=== PATIENT | female | born 1970 | race Hispanic/Latino ===

== ENCOUNTER 2020-02-28 19:49 | Observation (INO) | payer OTHER ==
[~2020-02-28] VITALS: Ht 152.4 cm; Wt 78.0 kg
[2020-02-28] MEDS ORDERED: FAMOTIDINE 20 MG/2 ML VIAL IV STA (20:52)
[2020-02-28] MEDS ORDERED: ONDANSETRON HCL INJ 2MG/ML 2ML 2 MG/ML VIAL IV STA (20:52)
[2020-02-28] MEDS ORDERED: ASPIRIN 325 MG TAB PO ONE (21:00)
--- OUTSIDE RECORDS SUMMARY | 2020-02-28 21:01 | XMS REPORT | Continuity of Care Document ---
Author Author [facility] Organization [facility] Address [address] [place] [address] [address] [place] [address] Phone Unavailable Care Team Providers Care Mail Sorter And Delivery Name Role Phone Asked, Pcp No PCP Unavailable Rios GROSS, Suzy Attphys Unavailable Som MENDOZA, Chon Serrano Attphys Edwardo MENDOZA, Radha Attphys Ander MENDOZA, Jelena Attphys RADHA PARKER Admphys Unavailable Payers Payer Name Policy Type Policy Number Effective Date Expiration Date S ource AETNAAETNA HMO,POS,EPO, MC/ECxxxxxxxxx2013-PresentHMO xxxxxxxxx 2013 00:00:00 Krishna Leigh Problems Condition Name Condition Details Condition Category Status Onset Date Resolution Date Last Treatment Date Treating Clinician Comments Source Hypokalemia Hypokalemia Disease Active 2020-01-03 00:00:00 Krishna Leigh Acute angina Acute angina Disease Active 2020-01-02 00:00:00 Krishna Leigh Allergies, Adverse Reactions, Alerts This patient has no known allergies or adverse reactions. Social History Social Habit Start Date Stop Date Quantity Comments Source Sex Assigned At [facility] Alcohol intake 2020-01-02 00:00:00 2020-01-02 00:00:00 Current drinker of alcohol (finding) Krishna Leigh Smoking Status Start Date Stop Date Source Never smoker Krishna solomon Medications Ordered Medication Name Filled Medication Name Start Date Stop Da te Current Medication? Ordering Clinician Indication Dosage Frequency Signature (SIG) Comments Components Source escitalopram (LEXAPRO) 10 MG tablet 2020-01-04 11:46:02 Yes 10mg QD Take 10 mg by mouth daily. Krishna Leigh levothyroxine (SYNTHROID) 100 mcg tablet 2020-01-04 11:46:02 Yes 100ug QD Take 100 mcg by mouth daily. Ramos Leigh atenoloL (TENORMIN) 50 MG tablet 2020-01-04 11:46:02 Yes 50mg QD Take 50 mg by mouth daily. Krishna Leigh atorvastatin (LIPITOR) 10 mg tablet 2020-01-01 00:00:00 Yes 10mg QD Take 10 mg by mouth daily. Krishna Leigh hydroCHLOROthiazide (MICROZIDE) 12.5 mg capsule 2020-01-01 00:00 :00 Yes 12.5mg QD Take 12.5 mg by mouth daily. Krishna Leigh Vital Signs Vital Name Observation Time Observation Value Comments Source Systolic blood pressure 2020-01-04 07:43:06 121 mm[Hg] Krishna Leigh Diastolic blood pressure 2020-01-04 07:43:06 71 mm[Hg] Krishna Leigh Heart rate 2020-01-04 07:43:06 67 /min Krishna Leigh Body temperature 2020-01-04 07:43:06 36.44 Denise [place] [facility] Respiratory rate 2020-01-04 07:43:06 18 /min [place] [facility] Oxygen saturation in Arterial blood by Pulse oximetry 01-03 07:43:06 95 /min Krishna Leigh Body weight 2020-01-04 06:13:00 77.656 kg Krishna Leigh BMI 2020-01-04 06:13:00 33.44 kg/m2 Krishna Leigh Body height 2020-01-02 20:02:00 152.4 cm Krishna Leigh Procedures Procedure Date / Time Performed Performing Clinician [facility] e BASIC METABOLIC PANEL 2020-01-04 05:20:00 Mihir Erazo MAGNESIUM LEVEL 2020-01-04 05:20:00 Mihir Erazo ESTIMATED GFR 2020-01-04 05:20:00 Mihir Erazo CV CARDIAC PET STRESS TEST 2020-01-03 15:34:16 Jelena Worthington CARDIAC PET MYOCARDIAL PERFUSION IMAGING 2020-01-03 15:34:16 Jelena Dietrich TROPONIN 2020-01-03 13:30:00 LeoJelena montalvo Krishna Meth odist TROPONIN 2020-01-03 02:17:00 SarbjitAndrzej shen[place]enssela[place] Alexipriscilla roque [place] [facility] BASIC METABOLIC PANEL 2020-01-03 02:17:00 Ciara Sampson ESTIMATED GFR 2020-01-03 02:17:00 Ciara Sampson on [facility] COVID-19 QUALITATIVE PCR 2020-01-03 00:39:00 Ciara Sampson TROPONIN 2020-01-02 23:05:00 Shelly Gómezmiesha [place] [facility] ED REFERRAL TO [facility] 2019 23:01:07 Ciara Sampson ECG ED PRELIMINARY INTERPRETATION 2020-01-02 22:39:07 Ab Adrián ioleufemia Leigh CT ANGIOGRAM PE CHEST 2020-01-02 22:29:40 Ciara Sampson XR CHEST 2 VW 2020-01-02 21:44:26 Ciara Sampson on [facility] URINE CULTURE 2020-01-02 21:00:00 Zahc Kearns URINALYSIS SCREEN AND MICROSCOPY, WITH REFLEX TO CULTURE 21:00:00 Zach Kearns HC COMPLETE BLD COUNT W/AUTO DIFF 2020-01-02 20:55:00 Kim Brown COMPREHENSIVE METABOLIC PANEL 2020-01-02 20:55:00 Alexa Brown TROPONIN 2020-01-02 20:55:00 Shelly Gómez [place] [facility] B NATRIURETIC PEPTIDE 2020-01-02 20:55:00 Ulysses Brown [facility] ESTIMATED GFR 2020-01-02 20:55:00 Ulysses Brown Met hodist ECG 12-LEAD 2020-01-02 20:04:43 Ulysses Brown Met hodist Plan of Care Planned Activity Planned Date Details Comments Source Future Scheduled Test 2020-03-19 00:00:00 INFLUENZA VACCINE [code = INFLUENZA VACCINE] Krishna Leigh Future Scheduled Test 2019 00:00:00 BREAST CANCER SCRE ENING [code = BREAST CANCER SCREENING] Krishna Leigh Future Scheduled Test 2019 00:00:00 COLONOSCOPY SCREEN ING [code = COLONOSCOPY SCREENING] Krishna Leigh Future Scheduled Test 2019 00:00:00 SHINGLES VACCINES (#1) [code = SHINGLES VACCINES (#1)] Krishna Leigh Future Scheduled Test 1990 00:00:00 Screening for steve gnant neoplasm of cervix (procedure) [code = 136354705] Krishna Giles t Encounters Start Date/Time End Date/Time Encounter Type Admission Type [facility] Care Department Encounter ID Source 2020-01-02 00:00:00 2020-01-04 00:00:00 Outpatient [facility] [id number] Krishna Leigh Results Test Description Test Time Test Comments Results Result Comments Source SCR MAMM BILATERAL BIJU CAD DIGITAL 2020-01-23 10:40:26 - SCR MAMM BILATERAL BIJU CAD DIGITALBILATERAL DIGITAL SCREENING MAMMOGRAM 3D/2D WITH CAD: 01/21/2020CLINICAL: Asymptomatic. Digital breast tomosynthesis was performed in addition to routine CC and MLO views. Current mammographic images were evaluated by either a Andigilog M-Vu or a Cojoin ImageChecker CAD (computer aided detection system). Comparison is made to exams dated 09/28/2016 mammogram and 09/29/2014 mammogram - [facility]-. The tissue of both breasts has scattered fibroglandular background echotexture. Questionable asymmetry versus superimposition of breast tissue, only seen in the right breast mediolateral oblique view, retroareolar plane, approximately 11 cm from the nipple. Stable bilateral oval, circumscribed masses, benign. No suspicious mass, architectural distortion, malignant type calcification, or lymph node abnormality detected in the left breast. IMPRESSION: INCOMPLETE: ADDITIONAL IMAGING EVALUATION NEEDEDQuestionable asymmetry versus superimposition of breast tissue, only seen in the right breast mediolateral oblique view, retroareolar plane, approximately 11 cm from the nipple. Spot compression tomosynthesis and possible ultrasound are recommended at this time.Nigel Munoz M.D. ss/:01/23/2020 10:40:26 Surveyor Chain Helper: Ana Guerrero , [facility]-FWletter sent: Additional Imaging Mammogram BI-RADS: 0 Incomplete: Additional Imaging Evaluation Needed Basic metabolic panel 2020-01-04 07:23:21 Test Item Sodium (test code = 2951-2) 139 135- 148 mEq/L Potassium (test code = 2823-3) 4.1 3.5- 5.0 mEq/L Chloride (test code = 2075-0) 102 98- 112 mEq/L CO2 (test code = 2028-9) 22 24- 31 mEq/L L Anion gap (test code = 92873-9) 15@ANIO 7- 15 mEq/L BUN (test code = 3094-0) 17 mg/dL 6-20 Creatinine (test code = 2160-0) 0.72 mg/dL 0.5-0.9 Glucose (test code = 2345-7) 108 mg/dL 65-99 H Calcium (test code = 55385-1) 9.7 mg/dL 8.3-10.2 Lab Interpretation (test code = 99958-4) Abnormal [facility] [id number] 07:23:21* Test Item Value Reference Range Interpretation Comments Magnesium (test code = 03559-2) 2.0 mg/dL 1.6-2.6 Krishna MethodistEstimated [id number] 07:23:21* Test Item Value Reference Range Interpretation Comments Estimated GFR (test code = 5488) >=90 mL/min/1.73 m2 Catergory Units InterpretationG1 >=90 Normal or highG2 60-89 Mildly psznotcexY4w 45-59 Mildly to moderately kzsiuedgvU6r 30-44 Moderately to severely decreasedG4 15-29 Severely decreasedG5 <15 Kidney failureThe eGFR was calculated using the Chronic Kidney Disease Epidemiology Collaboration (CKD-EPI) equation. Interpretation is based on recommendations of the National Kidney Foundation-Kidney Disease Outcomes Quality Initiative (NKF-KDOQI) published in 2014. [facility] CatholicCOVID-19 qualitative [id number] 17:11:11* Test Item Value Reference Range Interpretation Comments Interpretation (test code = 9692545) Negative results do not preclude 2019-nCoV infection and should not be used as the sole basis for treatment or other patient management decisions. Negative results must be combined with clinical observations, patient history, and epidemiological information. COVID-19 qualitative PCR result (test code = 01877-6) Not-Detect ed Not-Detected COVID-19 qualitative PCR (test code = 7070) See link below for P DF Lab Report Krishna Centeno Cardiac PET Myocardial Perfusion [id number] 16:45:33 Interface, Radiology Results In - 01/03/2020 4:45 PM CDTSee PDF file for full r esultHouzena LeighCv stress [id number] 16:36:50* Test Item Value Reference Range Interpretation Comments Resting HR (test code = 4107968969) 60 Resting BP (test code = 0710961332) 129 Peak MET Achieved (test code = 8173828996) 1 Protocol Name (test code = 6903042935) Lexiscan Time in Exercise Phase (test code = 9640006132) 00:01:00 Max Systolic BP (test code = 5548919593) 132 Max Diastolic BP (test code = 1880502087) 63 Max Heart Rate (test code = 3157539936) 89 Max Predicted Heart Rate (test code = 8511438718) 170 Target HR Formula (test code = 7610524854) (220 - Age)*100% Test Indication (test code = 7385853877) chest pain Arrhy During Ex (test code = 6556023367) ECG Interp Before EX (test code = 6314061525) ECG Interp During Ex (test code = 1784617296) Ex Summary Comment (test code = 6231387419) Overall HR Response to Exercise (test code = 0314698503) Overall BP Response To Exercise (test code = 2653669386) Reason for Termination (test code = 6291818660) Protocol Complete Stress Test Impression (test code = 1428330097) -Wavef orm interpreted in report associated with image study. No interpretation is provided as part of this Stress ECG report.- Krishna LeighJhyjkyxoyMudaxxlx7983-51-03 14:08:35* Test Item Value Reference Range Interpretation Comments Troponin (test code = 30236-1) 0.020 ng/mL 0-0.04 In patients suspected of having a myocardial infarction, along with all other appropriate clinical measures and actions including ECG and other diagnostics as appropriate, measure Ultra TnI at 0 hrs and at 3 hrs.Myocardial infarction VERY LIKELYThe 0 hr TnI level is > 0.10 ng/mL Pasquale cardial infarction LIKELYThe 0 hr TnI level is > 0.04 ng/mL and 3 hr level is increased or decreased by at least 0.020 ng/mL Myocardi al infarction VERY UNLIKELYBoth the 0 hr and 3 hr TnI levels <= 0.04 ng/mL(within normal limits) OR 0 hr is > 0.04 ng/mL and 3 hr is increased OR decreased by less than 0.020 ng/mL [facility] MethodistECG 12 [id number] 10:04:17* Test Item Value Reference Range Interpretation Comments Ventricular rate (test code = 253) 83 Atrial rate (test code = 255) 83 MN interval (test code = 266) 180 QRSD interval (test code = 260) 92 QT interval (test code = 264) 408 QTC interval (test code = 265) 479 P axis 1 (test code = 267) 55 QRS axis 1 (test code = 268) -8 T wave axis (test code = 270) 33 EKG impression (test code = 273) Normal sinus rhythm-N ormal ECG-No previous ECGs available- [facility] Angiogram Pe [id number] 22:44:56Hm Interface, Radiology Results - 01/02/2020 10:48 PM CDTEXAMINATION: CT ANGIOGRAM PE CHESTCLINICAL HISTORY: 48 years Female Cp SOBTECHNIQUE: Multiple CT angiographic images of the chest were obtained during intravenous administration of contrast. Multiple computerized reformatted images as well as 3-D volume rendered images were also obtained. CT imaging was performed with iterative r econstruction techniques and/or automated exposure control to reduce radiation d ose. COMPARISON: None.FINDINGS:Lungs and airways: No acute airspace disease or suspicious pulmonary nodules. Pleura: No pleural effusion or pneumothorax.Medias tinum and lymph nodes: No lymphadenopathy. Cardiovascular: The heart size is nor mal. No pericardial effusion.The caliber of the ascending, transverse, and desce nding thoracic aorta is normal. The thoracic aorta is patent. There is no eviden ce of dissection flap in the thoracic aorta.The pulmonary artery trunk, right ma in pulmonary artery, and left main pulmonary artery are within normal limits of size. No saddle embolus is identified. There is no evidence of right heart strai n. No filling defect is identified within the central segmental opacified pulmon dominic arteries. Evaluation of the more distal pulmonary artery branches is limited due to contrast mixing artifact. Upper abdomen: No suspicious abnormalities.Bon es: No suspicious osseous lesions. Other: None.IMPRESSION:1. No evidence of pul monary embolism.2. No acute abnormality identified in the chest.[facility]-[id number] [place] Preliminary Interpretation - Not an [id number] 22:39:07Zach Kearns MD 01/08/2020 2:52 [facility] Preliminary Interpretation - Not an OrderPerformed by: Ciara Sampson, PAAuthorized by: Zach Kearns MD ECG reviewed by ED Physician in the absence of a tea bag packer: yes Previous ECG: Previous ECG: UnavailableInterpretation: Interpretation: normal Rate: ECG rate: 83 bpm ECG rate assessment: normal Rhythm: Rhythm: sinus rhythm Ectopy: Ectopy: none QRS: QRS axis: Left QRS intervals: NormalConduction: Conduction: normal ST segments: ST segments: Non-specificT waves: T waves: normal [place] MethodistUrinalysis screen and microscopy, with reflex to [id number] 22:29:50* Test Item Value Reference Range Interpretation Comments Specimen site (test code = 8977809) Clean catch Color, UA (test code = 5778-6) Colorless Appearance, UA (test code = 5767-9) Clear Specific gravity, UA (test code = 5811-5) 1.003 1.001-1.035 pH, UA (test code = 5803-2) 7.0 5.0-8.5 Protein, UA (test code = 21574-5) Negative Negative Glucose, UA (test code = 87120-4) Negative Negative Ketones, UA (test code = 2514-8) Negative Negative Bilirubin, UA (test code = 5770-3) Negative Negative Blood, UA (test code = 5794-3) Negative Negative Nitrite, UA (test code = 5802-4) Negative Negative Urobilinogen, UA (test code = 24688-3) <2.0 <2.0 Leukocyte esterase, UA (test code = 5799-2) Negative Negative WBC, UA (test code = 5821-4) <1 0- 4 /HPF RBC, UA (test code = 15198-0) <1 0- 5 /HPF Bacteria, UA (test code = 17588-6) Few None seen Yeast, UA (test code = 20304-7) None seen Yeast with pseudohyphae, UA (test code = 21741-8) None seen [facility] natriuretic [id number] 22:09:03* Test Item Value Reference Range Interpretation Comments BNP (test code = 73491-7) 7 pg/mL 0-100 [place] MethodistXR Chest 2 [id number] 21:49:39Hm Interface, Radiology Results - 01/02/2020 9:52 PM CDTEXAMINATION: XR CHEST 2 VWCLINICAL HISTORY: 48 years Female SOBCOMPARISON: None.IMPRESSION:Normal chest.Findings:The cardiomediastinal silhouette, lungs, and regional skeletal structures are within normal limits.[facility]-BN93ISIGHqpqgpw MethodistUrine [id number] 21:41:45* Test Item Value Reference Range Interpretation Comments Urine culture (test code = 5944209) SEE COMMENT Bacteriuria screen negative. [place] [facility] centerComprehensive metabolic [id number] 21:38:03* Test Item Value Reference Range Interpretation Comments Sodium (test code = 2951-2) 140 135- 148 mEq/L Potassium (test code = 2823-3) 3.3 3.5- 5.0 mEq/L L Chloride (test code = 5-0) 100 98- 112 mEq/L CO2 (test code = 2027-9) 26 24- 31 mEq/L Anion gap (test code = 32310-9) 14@ANIO 7- 15 mEq/L BUN (test code = 3094-0) 12 mg/dL 6-20 Creatinine (test code = 2160-0) 0.73 mg/dL 0.5-0.9 Glucose (test code = 2345-7) 108 mg/dL 65-99 H Calcium (test code = 55805-3) 9.3 mg/dL 8.3-10.2 Protein (test code = 2885-2) 7.4 g/dL 6.3-8.3 - 4.6- 7.0 g/dL1 week 4.4-7.6 g/dL7 months-1year 5.1-7.3 g/dL1-2 years 5.6-7.5 g/dL>3 years 6.0-8.0 g/bW22-641 6.3-8.3 g/dL Albumin (test code = 1751-7) 4.0 g/dL 3.5-5 A/G ratio (test code = 1759-0) 1.2 0.7-3.8 Alkaline phosphatase (test code = 6768-6) 120 U/L 35-104 H AST (test code = 1920-8) 36 U/L 10-35 H ALT (test code = 1742-6) 53 U/L 5-50 H Total bilirubin (test code = 1974-2) <0.2 0-1.2 Lab Interpretation (test code = 50211-1) Abnormal [facility] with platelet and [id number] 21:14:08* Test Item Value Reference Range Interpretation Comments WBC (test code = 22311-0) 7.71 4.50- 11.00 k/uL RBC (test code = 18686-0) 4.40 m/uL 4.2-5.5 HGB (test code = 718-7) 12.5 g/dL 12-16 HCT (test code = 4544-3) 36.4 % 37-47 L MCV (test code = 787-2) 82.7 fL 82-100 MCH (test code = 785-6) 28.4 pg 27-34 MCHC (test code = 786-4) 34.3 g/dL 31-37 RDW - SD (test code = 91827-5) 40.3 fL 37-55 MPV (test code = 85449-2) 9.9 fL 8.8-13.2 Platelet count (test code = 62982-2) 262 150- 400 k/uL Nucleated RBC (test code = 69801-9) 0.00 /100 WBC Neutrophils (test code = 34419-4) 50.8 % 39-69 Lymphocytes (test code = 59099-4) 38.0 % 25-45 Monocytes (test code = 23198-8) 8.7 % 0-10 Eosinophils (test code = 95597-6) 1.3 % 0-5 Basophils (test code = 57872-4) 0.4 % 0-1 Immature granulocytes (test code = 07591-7) 0.8 % 0-1 "Immature granulocytes" (promyelocytes, myelocytes, metamyelocytes) Lab Interpretation (test code = 70949-6) Abnormal Krishna Leigh
--- OUTSIDE RECORDS SUMMARY | 2020-02-28 21:01 | XMS REPORT | Clinical Summary ---
Author Author [facility] Organization [facility] Address Unknown Phone Unavailable Care Team Providers Care Work Study Student Name Role Phone Asked, No Pcp PCP Unavailable Allergies No Known Allergies Medications End Date Status Medication Sig Dispensed Refills Start Date Active escitalopram (LEXAPRO) 10 Take 10 mg by 0 MG tablet mouth daily. Active levothyroxine (SYNTHROID) Take 100 mcg 0 100 mcg tablet by mouth daily. Active atenoloL (TENORMIN) 50 MG Take 50 mg by 0 tablet mouth daily. Active atorvastatin (LIPITOR) 10 Take 10 mg by 0 12/17 mg tablet mouth daily. 0 Active hydroCHLOROthiazide Take 12.5 mg 0 (MICROZIDE) 12.5 mg by mouth 0 capsule daily. Active Problems Problem Noted Date Hypokalemia 01/03/2020 Acute angina 01/02/2020 Encounters Care Team Description Date Type Specialty Suzy Nation RN 01/06/2020 Patient Quality Outreach Jelena Worthington MD 01/03/2020 Hospital Procedural Cardiolo gy Encounter Zach Kearns MD Cherian, Cecil, MD Acute angina (HCC) (Primary Dx); SOB (shortness of breath); Elevated troponin 01/02/2020 Emergency General Internal Me dicine - 01/04/2020 01/02/2020 Travel after 02/27/2019 Social History Date Tobacco Use Types Packs/Day Years Used Never Smoker Smokeless Tobacco: Never Used Drinks/Week oz/Week Comments Alcohol Use Yes Sex Assigned at Date Recorded Not on file Industry Job Start Date Occupation Not on file Not on file Not on file Travel End Travel History Travel Start No recent travel history available. Last Filed Vital Signs Reading Time Taken Comments Vital Sign 121/71 01/04/2020 7:43 AM CDT Blood Pressure 67 01/04/2020 7:43 AM CDT Pulse 36.4 C (97.6 F) 01/04/2020 7:43 AM CDT Temperature 18 01/04/2020 7:43 AM CDT Respiratory Rate 95% 01/04/2020 7:43 AM CDT Oxygen Saturation - - Inhaled Oxygen Concentration 77.7 kg (171 lb 3.2 oz) 01/04/2020 6:13 AM CDT Weight 152.4 cm (5') 01/02/2020 8:02 PM CDT Height 33.44 01/02/2020 8:02 PM CDT Body Mass Index Plan of Treatment Health Maintenance Due Date Last Done Comments CERVICAL CANCER SCREENING 1990 BREAST CANCER SCREENING 2019 COLONOSCOPY SCREENING 2019 SHINGLES VACCINES (#1) 2019 INFLUENZA VACCINE 03/19/2020 Procedures Comments Procedure Name Priority Date/Time Associated Diag nosis ESTIMATED GFR Routine 01/04/2020 5:20 AM CDT MAGNESIUM LEVEL Routine 01/04/2020 5:20 AM CDT BASIC METABOLIC PANEL Routine 01/04/2020 5:20 AM CDT CARDIAC PET MYOCARDIAL Routine 01/03/2020 PERFUSION IMAGING 3:34 PM CDT CV CARDIAC PET STRESS Routine 01/03/2020 TEST 3:34 PM CDT TROPONIN Routine 01/03/2020 1:30 PM CDT ESTIMATED GFR Timed 01/03/2020 2:17 AM CDT BASIC METABOLIC PANEL Timed 01/03/2020 2:17 AM CDT TROPONIN Timed 01/03/2020 2:17 AM CDT COVID-19 QUALITATIVE PCR STAT 01/03/2020 12:39 AM CDT TROPONIN Timed 01/02/2020 11:05 PM CDT ED REFERRAL TO [place] Routine 01/02/2020 [facility] PHYSICIAN 11:01 PM CDT ORGANIZATION ECG ED PRELIMINARY Routine 01/02/2020 INTERPRETATION 10:[address] ANGIOGRAM PE CHEST STAT 01/02/2020 10:29 PM CDT XR CHEST 2 VW STAT 01/02/2020 9:44 PM CDT URINALYSIS SCREEN AND Routine 01/02/2020 MICROSCOPY, WITH REFLEX 9:00 PM CDT TO CULTURE URINE CULTURE Routine 01/02/2020 9:00 PM CDT ESTIMATED GFR STAT 01/02/2020 8:55 PM CDT B NATRIURETIC PEPTIDE STAT 01/02/2020 8:55 PM CDT TROPONIN STAT 01/02/2020 8:55 PM CDT COMPREHENSIVE METABOLIC STAT 01/02/2020 PANEL 8:55 PM CDT HC COMPLETE BLD COUNT STAT 01/02/2020 W/AUTO DIFF 8:55 PM CDT ECG 12-LEAD STAT 01/02/2020 8:04 PM CDT after 02/27/2019 Results * Estimated GFR (01/04/2020 5:20 AM CDT) Only the most recent of 3 results within the time period is included. Pathologist [facility] Estimated GFR >=90 mL/min/1.73 m2 [place] Comment: [facility] Interpretation G1 >=90 Normal or high G2 60-89 Mildly decreased G3a 45-59 Mildly to moderately decreased G3b 30-44 Moderately to severely decreased G4 15-29 Severely decreased G5 <15 Kidney failure The eGFR was calculated using the Chronic Kidney Disease Epidemiology Collaboration (CKD-EPI) equation. Interpretation is based on recommendations of the National Kidney Foundation-Kidney Disease Outcomes Quality Initiative (NKF-KDOQI) published in 2014. Specimen Performing Organization Address City/State/Zipcode Ph one Number [facility] DEPARTMENT OF [address] [place] [address] PATHOLOGY AND GENOMIC MEDICINE [place] [facility] [address] [place], [place] [id number] HOSPITAL * Magnesium level (01/04/2020 5:20 AM CDT) Pathologist [facility] Magnesium 2.0 1.6 - 2.6 mg/dL [facility] Specimen Blood Performing Organization Address City/[facility] one Number [facility] DEPARTMENT OF [address] [place] [address] PATHOLOGY AND GENOMIC MEDICINE [address] * Basic metabolic panel (01/04/2020 5:20 AM CDT) Only the most recent of 2 results within the time period is included. [facility] Sodium 139 135 - 148 mEq/L [facility] Potassium 4.1 3.5 - 5.0 mEq/L [facility] Chloride 102 98 - 112 mEq/L [facility] CO2 22 (L) 24 - 31 mEq/L [facility] Anion gap 15@ANIO 7 - 15 mEq/L [facility] BUN 17 6 - 20 mg/dL [facility] Creatinine 0.72 0.50 - 0.90 mg/dL [facility] Glucose 108 (H) 65 - 99 mg/dL [facility] Calcium 9.7 8.3 - 10.2 mg/dL [facility] Specimen Blood Performing Organization Address [facility] one Number [facility] DEPARTMENT OF [address] [place] [address] PATHOLOGY AND GENOMIC MEDICINE [address] * CV Cardiac PET Myocardial Perfusion Imaging (01/03/2020 3:34 PM CDT) Specimen Narrative Performed At [facility] See PDF file for full result Procedure Note Interface, Radiology Results In - 01/03/2020 4:45 PM CDT See PDF file for full result Performing Organization Address [facility] one Number [facility] [address] [place] [address] * Cv stress test (01/03/2020 3:34 PM CDT) [facility] Resting HR 60 [facility] Resting BP 129 [facility] Peak MET 1.0 [facility] Achieved Protocol Name Krystian [facility] MUSE Time in 00:01:00 [facility] MUSE Exercise Phase Max Systolic BP 132 [facility] Max Diastolic 63 [facility] BP Max Heart Rate 89 [facility] Max Predicted 170 [facility] Heart Rate Target HR (220 - Age)*100% [facility] Formula Test Indication chest pain [facility] Arrhy During Ex [facility] ECG Interp [facility] Before EX ECG Interp [facility] During Ex Ex Summary [facility] Comment Overall HR [facility] Response to Exercise Overall BP [facility] Response To Exercise Reason for Protocol Complete [facility] Termination Stress Test -Waveform interpreted in [facility] Impression report associated with imag e study. No interpretation is provided as part of this Stress ECG report.- Specimen Narrative Performed At This result has an attachment that is n ot available. Performing Organization Address City/State/Zipcode Ph one Number [facility] MUSE [address] [place] [address] * Troponin (01/03/2020 1:30 PM CDT) Only the most recent of 4 results within the time period is included. Troponin 0.020 0.000 - 0.040 ng/mL [place] Comment: [facility] In patients suspected of HOSPITAL having a myocardial infarction, along with all other appropriate clinical measures and actions including ECG and other diagnostics as appropriate, measure Ultra TnI at 0 hrs and at 3 hrs. Myocardial infarction VERY LIKELY The 0 hr TnI level is > 0.10 ng/mL Myocardial infarction LIKELY The 0 hr TnI level is > 0.04 ng/mL and 3 hr level is increased or decreased by at least 0.020 ng/mL Myocardial infarction VERY UNLIKELY Both the 0 hr and 3 hr TnI levels <= 0.04 ng/mL(within normal limits) OR 0 hr is > 0.04 ng/mL and 3 hr is increased OR decreased by less than 0.020 ng/mL Specimen Blood Performing Organization Address City/[facility] Ph one Number [facility] DEPARTMENT OF [address] [place] [address] PATHOLOGY AND GENOMIC MEDICINE [address] * COVID-19 qualitative PCR (01/03/2020 12:39 AM CDT) Interpretation Negative results do not KELLER preclude 2019-nCoV infection [facility] and should not be used as the HOSPITAL sole basis for treatment or other patient management decisions. Negative results must be combined with clinical observations, patient history, and epidemiological information. COVID-19 Not-Detected Not-Detected [place] qualitative PCR [facility] result HOSPITAL COVID-19 See link below for PDF Lab [place] qualitative PCR ReportComment: Case Number: [facility] [id number] HOSPITAL Specimen Nasopharyngeal swab Performing Organization Address [facility] Ph one Number [facility] DEPARTMENT OF [address] [place] [address] PATHOLOGY AND GENOMIC MEDICINE [address] * ECG ED Preliminary Interpretation - Not an Order (01/02/2020 10:39 PM CDT) Narrative Performed At Zach Kearns MD 0 2:52 PM ECG ED Preliminary Interpretation - Not an Order Performed by: Ciara Sampson P A Authorized by: Zach Kearns MD ECG reviewed by ED Physician in the abs ence of a community relations police lieutenant: yes Previous ECG: Previous ECG: Unavailable Interpretation: Interpretation: normal Rate: ECG rate: 83 bpm ECG rate assessment: normal Rhythm: Rhythm: sinus rhythm Ectopy: Ectopy: none QRS: QRS axis: Left QRS intervals: Normal Conduction: Conduction: normal ST segments: ST segments: Non-specific T waves: T waves: normal * CT Angiogram Pe Chest (01/02/2020 10:29 PM CDT) Specimen Narrative Performed At EXAMINATION: CT ANGIOGRAM PE CHEST [facility] CLINICAL HISTORY: 48 years Female Cp SOB TECHNIQUE: Multiple CT angiographic ninoska ges of the chest were obtained during intravenous administration of contrast. Multiple computerized reformatted images as well as 3-D volume rendered images w ere also obtained. CT imaging was performed with iterative reconstruction techniques and /or automated exposure control to reduce radiation dose. COMPARISON: None. FINDINGS: Lungs and airways: No acute airspace di sease or suspicious pulmonary nodules. Pleura: No pleural effusion or pneumoth orax. Mediastinum and lymph nodes: No lymphad enopathy. Cardiovascular: The heart size is timoteo l. No pericardial effusion. The caliber of the ascending, transvers e, and descending thoracic aorta is normal. The thoracic aorta is patent. T here is no evidence of dissection flap in the thoracic aorta. The pulmonary artery trunk, right main pulmonary artery, and left main pulmonary artery are within normal limits of size . No saddle embolus is identified. There is no evidence of right heart strain. N o filling defect is identified within the central segmental opacified pulmonary arteries. Evaluation of the more distal pulmonary artery branches is limited due to contr ast mixing artifact. Upper abdomen: No suspicious abnormalities. Bones: No suspicious osseous lesions. Other: None. IMPRESSION: 1. No evidence of pulmonary embolism. 2. No acute abnormality identified in the chest. [facility]-[id number] Procedure Note Hm Interface, Radiology Results 01/02/2020 10:48 PM CDT EXAMINATION: CT ANGIOGRAM PE CHEST CLINICAL HISTORY: 48 years Female Cp SOB TECHNIQUE: Multiple CT angiographic images of the chest were obtained during intravenous administration of contrast. Multiple computerized reformatted images as well as 3-D volume rendered images were also obtained. CT imaging was performed with iterative reconstruction techniques and/or automated exposure control to reduce radiation dose. COMPARISON: None. FINDINGS: Lungs and airways: No acute airspace disease or suspicious pulmonary nodules. Pleura: No pleural effusion or pneumothorax. Mediastinum and lymph nodes: No lymphadenopathy. Cardiovascular: The heart size is normal. No pericardial effusion. The caliber of the ascending, transverse, and descending thoracic aorta is normal. The thoracic aorta is patent. There is no evidence of dissection flap in the thoracic aorta. The pulmonary artery trunk, right main pulmonary artery, and left main pulmonary artery are within normal limits of size. No saddle embolus is identified. There is no evidence of right heart strain. No filling defect is identified within the central segmental opacified pulmonary arteries. Evaluation of the more distal pulmonary artery branches is limited due to contrast mixing artifact. Upper abdomen: No suspicious abnormalities. Bones: No suspicious osseous lesions. Other: None. IMPRESSION: 1. No evidence of pulmonary embolism. 2. No acute abnormality identified in t he chest. [facility]-[id number] Performing Organization Address City/[facility] Ph one Number [facility] [address] [place] [address] * XR Chest 2 Vw (01/02/2020 9:44 PM CDT) Specimen Narrative Performed At EXAMINATION: XR CHEST 2 VW [facility] CLINICAL HISTORY: 48 years Female SOB COMPARISON: None. IMPRESSION: Normal chest. Findings: The cardiomediastinal silhouette, lungs , and regional skeletal structures are within normal limits. [facility]-[id number] Procedure Note Interface, Radiology Results Incoming - 01/02/2020 9:52 PM CDT EXAMINATION: XR CHEST 2 VW CLINICAL HISTORY: 48 years Female SOB COMPARISON: None. IMPRESSION: Normal chest. Findings: The cardiomediastinal silhouette, lungs, and regional skeletal structures are within normal limits. [facility]-[id number] Performing Organization Address [facility] Ph one Number [facility] [address] [place] [address] * Urinalysis screen and microscopy, with reflex to culture (01/02/2020 9:00 PM CDT) Specimen site Clean catch [facility] Color, UA Colorless [facility] Appearance, UA Clear [facility] Specific 1.003 1.001 - 1.[address] [place] [address] [facility] pH, UA 7.0 5.0 - 8.[address] [facility] Protein, UA Negative Negative [facility] Glucose, UA Negative Negative [facility] Ketones, UA Negative Negative [facility] Bilirubin, UA Negative Negative [facility] Blood, UA Negative Negative [facility] Nitrite, UA Negative Negative [facility] Urobilinogen, <2.0 <2.0 [facility] Leukocyte Negative Negative [place] [facility] WBC, UA <1 0 - 4 /HPF [facility] RBC, UA <1 0 - 5 /HPF [facility] Bacteria, UA Few None seen [facility] Yeast, UA None seen [facility] Yeast with None seen [place] [facility] Specimen Urine Performing Organization Address [facility] Ph one Number [facility] DEPARTMENT OF [address] [place] [address] PATHOLOGY AND GENOMIC MEDICINE [id number] [place] [address] * Urine culture (01/02/2020 9:00 PM CDT) Pathologist [facility] Urine culture SEE COMMENTComment: [place] Bacteriuria screen negative. [facility] Specimen Performing Organization Address City/State/[facility] Ph one Number [facility] DEPARTMENT OF [address] [place] [address] PATHOLOGY AND GENOMIC MEDICINE [address] * CBC with platelet and differential (01/02/2020 8:55 PM CDT) [facility] WBC 7.71 4.50 - 11.00 k/uL [facility] RBC 4.40 4.20 - 5.50 m/uL [facility] HGB 12.5 12.0 - 16.0 g/dL [facility] HCT 36.4 (L) 37.0 - 47.0 % [facility] MCV 82.7 82.0 - 100.[address] [facility] MCH 28.4 27.0 - 34.[address] [facility] MCHC 34.3 31.0 - 37.0 g/dL [facility] RDW - SD 40.3 37.0 - 55.[address] [facility] MPV 9.9 8.8 - 13.[address] [facility] Platelet count 262 150 - 400 k/uL [facility] Nucleated RBC 0.00 /[address] [facility] Neutrophils 50.8 39.0 - 69.0 % [facility] Lymphocytes 38.0 25.0 - 45.0 % [facility] Monocytes 8.7 0.0 - 10.0 % [facility] Eosinophils 1.3 0.0 - 5.0 % [facility] Basophils 0.4 0.0 - 1.0 % [facility] Immature 0.8Comment: "Immature 0.0 - 1.0 % [place] granulocytes granulocytes" (promyelocytes, [facility] myelocytes, metamyelocytes) [facility] Specimen Blood Performing Organization Address City/State/Zipcode Ph one Number [facility] DEPARTMENT OF [address] [place] [address] PATHOLOGY AND GENOMIC MEDICINE [address] * B natriuretic peptide (01/02/2020 8:55 PM CDT) Pathologist [facility] BNP 7 0 - 100 pg/mL [facility] Specimen Blood Performing Organization Address City/[facility] Ph one Number [facility] DEPARTMENT OF [address] [place] [address] PATHOLOGY AND GENOMIC MEDICINE [address] * Comprehensive metabolic panel (01/02/2020 8:55 PM CDT) [facility] Sodium 140 135 - 148 mEq/L [facility] Potassium 3.3 (L) 3.5 - 5.0 mEq/L [facility] Chloride 100 98 - 112 mEq/L [facility] CO2 26 24 - 31 mEq/L [facility] Anion gap 14@ANIO 7 - 15 mEq/L [facility] BUN 12 6 - 20 mg/dL [facility] Creatinine 0.73 0.50 - 0.90 mg/dL [facility] Glucose 108 (H) 65 - 99 mg/dL [facility] Calcium 9.3 8.3 - 10.2 mg/dL [facility] Protein 7.4 6.3 - 8.3 g/dL [place] Comment: [facility] [place] 4.6-7.0 g/dL 1 week 4.4-7.6 g/dL 7 months-1year 5.1-7.3 g/dL 1-2 years 5.6-7.5 g/dL >3 years 6.0-8.0 g/dL 18-150 6.3-8.3 g/dL Albumin 4.0 3.5 - 5.0 g/dL [facility] A/G ratio 1.2 0.7 - 3.[address] [facility] Alkaline 120 (H) 35 - 104 U/L [place] phosphatase [facility] AST 36 (H) 10 - 35 U/L [facility] ALT 53 (H) 5 - 50 U/L [facility] Total bilirubin <0.2 0.0 - 1.2 mg/dL [facility] Specimen Blood Performing Organization Address City/State/[facility] Ph one Number [facility] DEPARTMENT OF [address] [place] [address] PATHOLOGY AND GENOMIC MEDICINE [address] * ECG 12 lead (01/02/2020 8:04 PM CDT) Pathologist [facility] Ventricular 83 [facility] MUSE rate Atrial rate 83 [facility] HI interval 180 [facility] QRSD interval 92 [facility] QT interval 408 [facility] QTC interval 479 [facility] P axis 1 55 [facility] QRS axis 1 -8 [facility] T wave axis 33 [facility] EKG impression Normal sinus rhythm-Normal [facility] MUSE ECG-No previous ECGs available- Specimen Narrative Performed At This result has an attachment that is n ot available. 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
[2020-02-28] MEDS ORDERED: ASPIRIN 325 MG TAB ONE (21:02)
[2020-02-28] MEDS ORDERED: FAMOTIDINE 20 MG/2 ML VIAL IV ONE (21:16)
[2020-02-28] MEDS ORDERED: ONDANSETRON HCL INJ 2MG/ML 2ML 2 MG/ML VIAL ONE (21:16)
[2020-02-28] MEDS ORDERED: SODIUM CHLORIDE 0.9% 1000ML 1,000 ML IV SCH (22:00)
--- NOTE | 2020-02-28 22:20 | Emergency Department Note ---
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 Pt points to her central chest, as the site of the pain. The "chest tightness" is intermittent, and does not radiate. She had some mild associated nausea, without vomiting or diarrhea. She also had some mild SOB, with light-headedness, without pre-syncopal symptoms. She denies any acute stressors, but her daughter states that patient's Mom, who lives in [facility] is sick, and patient cannot travel to visit her. Pt takes Escitalopram, which is for anxiety. Per patient's daughter, who was present and translated, the patient was seen in one of the [facility] ER's in 12/2019, where pt was admitted for "several days," and underwent a stress test and cardiac PET scan, and patient was diagnosed with "Angina." Pt was not placed on any new meds at the time of hospital discharge, and she is apparently scheduled to see a Light Out Examiner on 03/10, which she has not met before. Denies FH of heart disease. Historian: Patient, Family Member (daughter) Arrival Mode: Car History limited by: language barrier Patient Care Provider Required: Yes Onset (how long ago): minute(s) (30) Location: mid, substernal chest Quality: "chest pressure" Radiation: Reports non-radiation Severity: moderate Onset quality: sudden Duration (how long): hour(s) (0.5) Timing of current episode: constant Progression: worsening Chronicity: recurrent Context: Denies recent travel, Denies trauma/injury, Denies new medications Relieving factors: none Exacerbating factors: none Associated symptoms: Denies confusion, Denies cough, Denies diaphoresis, Denies fever/chills Treatments prior to arrival: none Risk factors: HTN, Obesity, Past Medical/Family History Physician Review I have reviewed the patient's past medical and family history. Any updates have been documented here. Past Medical History Recent Fever: No Clinical Suspicion of Infectio: No New/Unexplained Change in Ment: No Past Medical History: Hypertension, Hypothyroidism, Anxiety Past Surgical History: Hysterectomy Social History Smoking Cessation: Never Smoker Alcohol Use: None Any Illegal Drug Use: No TB Exposure/Symptoms: No Physically hurt or threatened: No Family History Family history of heart diseas: No Other Any Pre-Existing Lines (PICC,: No Is patient up to date on immun: No Review of Systems Review of Systems Constitutional: Reports weakness; Denies chills, Denies diaphoresis EENTM: Reports no symptoms Cardiovascular: Reports chest pain, Reports palpitations; Denies edema, Denies syncope Respiratory: Denies cough, Denies dyspnea, Denies dyspnea on exertion Gastrointestinal: Denies abdominal pain, Denies constipation, Denies diarrhea, Denies nausea Genitourinary: Reports no symptoms Musculoskeletal: Denies back pain, Denies joint pain, Denies joint swelling Integumentary: Denies change in color, Denies rash Neurological: Reports numbness, Reports paresthesia; Denies headache Psychological: Reports anxiety Endocrine: Reports no symptoms Hematological/Lymphatic: Reports no symptoms Review of other systems: All other systems negative Physical Exam Related Data Allergies: Coded Allergies: No Known Drug Allergies (Verified Allergy, Unknown, 02/28/20) Triage Vital Signs Vital Signs Date Time Temp Pulse Resp B/P (MAP) Pulse Ox O2 Delivery O2 Flow Rate FiO2 02/28/20 19:58 97.2 80 18 137/79 100 Room Air Vital signs reviewed: Yes Physical Exam CONSTITUTIONAL Constitutional: Present well-developed, Present well-nourished, Present obese; Absent distressed, Absent ill appearing HENT HENT: Present normocephalic, Present atraumatic, Present oropharynx clear/moist, Present nose normal HENT L/R: Present left ext ear normal, Present right ext ear normal EYES Eyes: Reports PERRL, Reports conjunctivae normal NECK Neck: Present ROM normal; Absent tracheal deviation, Absent JVD PULMONARY Pulmonary: Present effort normal, Present breath sounds normal CARDIOVASCULAR Cardiovascular: Present regular rhythm, Present heart sounds normal, Present capillary refill normal, Present normal rate GASTROINTESTINAL Abdominal: Present soft, Present nontender, Present bowel sounds normal; Absent distension, Absent guarding GENITOURINARY Genitourinary: Present exam deferred SKIN Skin: Present warm, Present dry; Absent rash MUSCULOSKELETAL Musculoskeletal: Present ROM normal NEUROLOGICAL Neurological: Present alert, Present oriented x 3, Present no gross motor or sensory deficits PSYCHOLOGICAL Psychological: Present mood/affect normal Results Laboratory Lab results reviewed: Yes Laboratory comments CMP - K+ = 3.0, Cl = 94, gluc = 194,cr = 0.3, alk phos = 133, ast = 41; Cardiacs - nl; D-dimer - nl; BNP - nl; UA - Negative; Metlac - Mg2+, lactic acid > 3.0 (This panel was drawn at the [facility], for a Magnesium levept has no signs or symptoms of sepsis or infection) CBC - WBC = 7,22, H/H = 11.4/34.2; Imaging Imaging results reviewed: Yes Impressions [facility] [address] [address] Patient Name: SARBJIT MYERS MR #: [id number] : 1970 Age/Sex: 49/F Req #: [id number] Adm Physician: Ordered by: CHERY CONWAY MD Report #: [id number] Location: [facility] Room/Bed: Procedure: [id number] [facility] Exam Date: 02/28/20 Exam Time: 0 REPORT STATUS: Signed EXAMINATION: CXR 2 VIEW - [facility] INDICATION: Chest pain COMPARISON: None FINDINGS: TUBES and LINES: None. LUNGS: Normal lung volumes. Lungs are clear. No consolidations. PLEURA: No pleural effusion or pneumothorax. HEART AND MEDIASTINUM: The cardiomediastinal silhouette is unremarkable. BONES AND SOFT TISSUES: No acute osseous lesion. Soft tissues are unremarkable. Degenerative changes. UPPER ABDOMEN: No free air under the diaphragm. IMPRESSION: No acute thoracic radiographic abnormality. Signed by: Tristin Dai DO on 02/28/2020 10:58 PM Dictated By: TRISTIN DAI DO 57 Transcribed By: RODRÍGUEZ on 02/28/202257 Procedures 12 Lead ECG Interpretation ECG Interpretation : ECG: ECG 1 Patient Care Provider: Interpreted by ED physician Date: Feb 28, 2020 Time: 19:59 Prior ECG tracings: not available for review Rhythm: sinus rhythm Rate: normal BPM: 77 QRS axis: normal ST segments normal: No ST segment flattening: III, aVL, V2, V3, V4 T waves normal: No T waves flattening: III, aVL, V2, V3 Clinical Impression: abnormal ECG Assessment & Plan Medical Decision Making MDM - Discussed with patient and daughter that patient's labs are unremarkable, other than for a low potassium and slightly elevated glucose. However, due to her recurrent chest pain with recent diagnosis of "angina" with no access to recent cardiac testing that was performed, and palpitations with diaphoresis, that it is prudent to admit patient for telemetry with serial cardiac enzymes and possible Cardiology consultation. She will also need to be monitored on tele, due to prolonged QTc interval on EKG, with history of palpitations. Pt and daughter voiced understanding the plan. - Cardiac testing was performed through [facility]. - Prolonged QTC - may need to hold Escitalopram, which can prolong the QTc. - HEART score = 4, which puts patient at moderate risk for a major atherosclerotic cardiac event, which warrants further evaluation. - Patient's pain resolved in the ED, after she received ASA 325 mg. NTG was not given, as her presenting B/P was in the low 130's . No acute EKG changes. Assessment & Plan Final Impression: (1) Chest pain (2) Weakness generalized (3) Palpitations (4) Hypokalemia (5) Prolonged QT interval (6) Hypothyroidism (7) Hypertension Depart Disposition: ADMITTED Last Vital Signs Date Time Temp Pulse Resp B/P (MAP) Pulse Ox O2 Delivery O2 Flow Rate FiO2 02/28/20 21:15 70 18 148/70 100 Room Air 02/28/20 19:58 97.2 Medications in the ED Aspirin 325 mg STK-MED ONCE .ROUTE ; Start 02/28/20 at 21:02; Stop 02/28/20 at 20:56; Status DC Aspirin 325 mg ONCE ONCE PO Last administered on 02/28/20at 21:18; Admin Dose 325 MG; Start 02/28/20 at 21:00; Stop 02/28/20 at 21:01; Status DC Famotidine 20 mg NOW STAT IV Last administered on 02/28/20at 21:10; Admin Dose 20 MG; Start 02/28/20 at 20:52; Stop 02/28/20 at 21:02; Status DC Ondansetron HCl 4 mg NOW STAT IV Last administered on 02/28/20at 21:18; Admin Dose 4 MG; Start 02/28/20 at 20:52; Stop 02/28/20 at 21:02; Status DC Ondansetron HCl 4 mg STK-MED ONCE .ROUTE ; Start 02/28/20 at 21:16; Stop 02/28/20 at 21:09; Status DC Famotidine 20 mg STK-MED ONCE IV ; Start 02/28/20 at 21:16; Stop 02/28/20 at 21:10; Status DC Sodium Chloride 1,000 ml @ 0 mls/hr Q0M IV ; Start 02/28/20 at 22:00; Stop 03/29/20 at 21:59; Status UNV Potassium Chloride/Sodium Chloride 1,000 ml @ 0 mls/hr Q0M IV ; Start 02/28/20 at 22:00; Stop 03/29/20 at 21:59; Status UNV CHERY CONWAY MD Feb 28, 2020 22:20
[2020-02-28] MEDS ORDERED: SODIUM CHLORIDE 0.9% 1000ML 1,000 ML ONE (22:35)
[2020-02-28] MEDS ORDERED: POTASSIUM CHLORIDE 20MEQ/100ML 100 ML ONE (22:36)
[2020-02-28] MEDS: KCL 20MEQ/.9 SOD CHL 1,000 ML IV SCH (22:42)
[2020-02-28 22:58] LABS: BASOPHILS % 0.1 % (0.0-1.0); EOSINOPHILS # (AUTO) 0.1 (0.0-0.4); EOSINOPHILS % 0.7 % (0.0-6.0); HEMATOCRIT 34.2 % (34.2-44.1); HEMOGLOBIN 11.4 g/dL (12.0-16.0); LYMPHOCYTES # (AUTO) 1.9 (1.0-3.2); LYMPHOCYTES % 26.1 % (18.0-39.1); MEAN CORPUSCULAR HEMOGLOBIN 27.6 pg (28-32); MEAN CORPUSCULAR HGB CONC 33.3 g/dL (31-35); MEAN CORPUSCULAR VOLUME 82.8 fL (81-99); MONOCYTES # (AUTO) 0.4 (0.2-0.8); MONOCYTES % 6.1 % (4.4-11.3); NEUTROPHILS # (AUTO) 4.8 (2.1-6.9); NEUTROPHILS % 66.6 % (38.7-80.0); PLATELET COUNT 246 x10e3/uL (140-360); RED BLOOD COUNT 4.13 x10e6/uL (3.6-5.1); RED CELL DISTRIBUTION WIDTH 13.9 % (11.7-14.4)
--- NOTE | 2020-02-28 23:02 | Diagnostic Imaging Report ---
EXAMINATION: CXR 2 VIEW - [facility] INDICATION: Chest pain COMPARISON: None FINDINGS: TUBES and LINES: None. LUNGS: Normal lung volumes. Lungs are clear. No consolidations. PLEURA: No pleural effusion or pneumothorax. HEART AND MEDIASTINUM: The cardiomediastinal silhouette is unremarkable. BONES AND SOFT TISSUES: No acute osseous lesion. Soft tissues are unremarkable. Degenerative changes. UPPER ABDOMEN: No free air under the diaphragm. IMPRESSION: No acute thoracic radiographic abnormality. Signed by: Tristin Dai DO on 02/28/2020 10:58 PM
[2020-02-28] MEDS ORDERED: MORPHINE SULFATE 2 MG/ML SYR 1ML IV PRN (23:30)
[2020-02-28] MEDS ORDERED: ONDANSETRON HCL INJ 2MG/ML 2ML 2 MG/ML VIAL IV PRN (23:30)
[2020-02-28] MEDS ORDERED: SODIUM CHLORIDE FLUSH 10 ML SYR INJ PRN (23:30)
[2020-02-28] MEDS ORDERED: ASPIRIN 81 MG CHEW TAB PO ONE (23:30)
[2020-02-28] MEDS ORDERED: NITROGLYCERIN 0.4 MG SUBL SL PRN (23:30)
--- OUTSIDE RECORDS SUMMARY | 2020-02-28 23:33 | XMS REPORT | Clinical Summary ---
Author Author [facility] Address Unknown Phone Unavailable Care Team Providers Care Colorectal Surgeon Name Role Phone Asked, No Pcp PCP [...] Encounters Care Team Description Date Type Specialty Szuy Nation RN 01/06/2020 Patient Quality Outreach Jelena [...] 01/02/2020 11:05 PM CDT ED REFERRAL TO [facility] Routine 01/02/2020 [facility] PHYSICIAN 11:01 PM CDT ORGANIZATION ECG ED [...] within the time period is included. Pathologist [facility] Estimated GFR >=90 mL/min/1.73 m2 [facility] Comment: [facility] Interpretation G1 >=90 Normal or [...] Organization Address City/State/Zipcode Ph one Number [facility] DEPARTMENT OF [address] [place] [address] PATHOLOGY AND GENOMIC MEDICINE [facility] [address] [place], [place] [id number] HOSPITAL * Magnesium level (01/04/2020 5:20 AM CDT) Pathologist [facility] Magnesium 2.0 1.6 - 2.6 mg/dL [facility] Specimen Blood Performing Organization Address City/[facility] one Number [facility] DEPARTMENT OF [address] [place] [address] PATHOLOGY AND GENOMIC MEDICINE [address] * Basic metabolic panel (01/04/2020 5:20 AM CDT) Only the most recent of 2 results within the time period is included. [facility] Sodium 139 135 - 148 mEq/L [facility] Potassium 4.1 3.5 - 5.0 mEq/L [facility] Chloride 102 98 - 112 mEq/L [facility] CO2 22 (L) 24 - 31 mEq/L [facility] Anion gap 15@ANIO 7 - 15 mEq/L [facility] BUN 17 6 - 20 mg/dL [facility] Creatinine 0.72 0.50 - 0.90 mg/dL [facility] Glucose 108 (H) 65 - 99 mg/dL [facility] Calcium 9.7 8.3 - 10.2 mg/dL [facility] Specimen Blood Performing Organization Address [facility] one Number [facility] DEPARTMENT OF [address] [place] [address] PATHOLOGY AND GENOMIC MEDICINE [address] * CV Cardiac PET Myocardial Perfusion Imaging (01/03/2020 3:34 PM CDT) Specimen Narrative Performed At [facility] See PDF file for full result Procedure Note Interface, Radiology Results In - 01/03/2020 4:45 PM CDT See PDF file for full result Performing Organization Address [facility] one Number [facility] [address] [place] [address] * Cv stress test (01/03/2020 3:34 PM CDT) [facility] Resting HR 60 [facility] MUSE Resting BP 129 [facility] Peak MET 1.0 [facility] Achieved Protocol Name Krystian [facility] M[facility] Time in 00:01:00 [facility] MUSE Exercise Phase Max Systolic BP [...] Organization Address City/State/Zipcode Ph one Number [facility] MUSE [address] [place] [address] * Troponin (01/03/2020 1:30 PM CDT) Only the most recent of 4 results within the time period is included. Troponin 0.020 0.000 - 0.040 ng/mL [facility] Comment: [facility] In patients suspected of HOSPITAL having a [...] 0.020 ng/mL Specimen Blood Performing Organization Address City/[facility] Ph one Number [facility] DEPARTMENT OF [address] [place] [address] PATHOLOGY AND GENOMIC MEDICINE [address] * COVID-19 qualitative PCR (01/03/2020 12:39 AM CDT) Interpretation Negative results do not KELLER preclude 2019-nCoV infection [facility] and should not be used as the HOSPITAL sole basis for treatment or other patient management decisions. Negative results must be combined with clinical observations, patient history, and epidemiological information. COVID-19 Not-Detected Not-Detected [facility] qualitative PCR [facility] result HOSPITAL COVID-19 See link below for PDF Lab [facility] qualitative PCR ReportComment: Case Number: [facility] [id number] HOSPITAL Specimen Nasopharyngeal swab Performing Organization Address [facility] Ph one Number [facility] DEPARTMENT OF [address] [place] [address] PATHOLOGY AND GENOMIC MEDICINE [address] * ECG ED Preliminary Interpretation - Not an Order (01/02/2020 10:39 PM CDT) Narrative Performed At Zach Kearns MD 0 2:52 PM ECG ED Preliminary Interpretation - Not an Order Performed by: Ciara Sampson P A Authorized by: Zach Kearns MD ECG reviewed by ED Physician 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 [facility]-[id number] Procedure Note Hm Interface, Radiology Results 01/02/2020 [...] abnormality identified in t he chest. [facility]-[id number] Performing Organization Address City/[facility] Ph one Number [facility] [address] [place] [address] * XR Chest 2 Vw (01/02/2020 9:44 PM CDT) Specimen Narrative Performed At EXAMINATION: XR CHEST 2 VW [facility] CLINICAL HISTORY: 48 years Female SOB COMPARISON: None. IMPRESSION: Normal chest. Findings: The cardiomediastinal silhouette, lungs , and regional skeletal structures are within normal limits. [facility]-[id number] Procedure Note Interface, Radiology Results Incoming - 01/02/2020 9:52 PM CDT EXAMINATION: XR CHEST 2 VW CLINICAL HISTORY: 48 years Female SOB COMPARISON: None. IMPRESSION: Normal chest. Findings: The cardiomediastinal silhouette, lungs, and regional skeletal structures are within normal limits. [facility]-[id number] Performing Organization Address [facility] Ph one Number [facility] [address] [place] [address] * Urinalysis screen and microscopy, with reflex to culture (01/02/2020 9:00 PM CDT) Specimen site Clean catch [facility] Color, UA Colorless [facility] Appearance, UA Clear [facility] Specific 1.003 1.001 - 1.035 [facility] pH, UA 7.0 5.0 - 8.5 [facility] Protein, UA Negative Negative [facility] Glucose, UA Negative Negative [facility] Ketones, UA Negative Negative [facility] Bilirubin, UA Negative Negative [facility] Blood, UA Negative Negative [facility] Nitrite, UA Negative Negative [facility] Urobilinogen, <2.0 <2.0 [facility] Leukocyte Negative Negative [facility] esteraseMETHODIST [facility] WBC, UA <1 0 - 4 /HPF [facility] RBC, UA <1 0 - 5 /HPF [facility] Bacteria, UA Few None seen [facility] Yeast, UA None seen [facility] Yeast with None seen [facility] Specimen Urine Performing Organization Address [facility] Ph one Number [facility] DEPARTMENT OF [address] [place] [address] PATHOLOGY AND GENOMIC MEDICINE [id number] [place] [address] * Urine culture (01/02/2020 9:00 PM CDT) Pathologist [facility] Urine culture SEE COMMENTComment: [facility] Bacteriuria screen negative. [facility] Specimen Performing Organization Address City/State/[facility] Ph one Number [facility] DEPARTMENT OF [address] [place] [address] PATHOLOGY AND GENOMIC MEDICINE [address] * CBC with platelet and differential (01/02/2020 8:55 PM CDT) [facility] WBC 7.71 4.50 - 11.00 k/uL [facility] RBC 4.40 4.20 - 5.50 m/uL [facility] HGB 12.5 12.0 - 16.0 g/dL [facility] HCT 36.4 (L) 37.0 - 47.0 % [facility] MCV 82.7 82.0 - 100.0 fL [facility] MCH 28.4 27.0 - 34.0 pg [facility] MCHC 34.3 31.0 - 37.0 g/dL [facility] RDW - SD 40.3 37.0 - 55.0 fL [facility] MPV 9.9 8.8 - 13.2 fL [facility] Platelet count 262 150 - 400 k/uL [facility] Nucleated RBC 0.00 /100 WBC [facility] Neutrophils 50.8 39.0 - 69.0 % [facility] Lymphocytes 38.0 25.0 - 45.0 % [facility] Monocytes 8.7 0.0 - 10.0 % [facility] Eosinophils 1.3 0.0 - 5.0 % [facility] Basophils 0.4 0.0 - 1.0 % [facility] Immature 0.8Comment: "Immature 0.0 - 1.0 % [facility] granulocytes granulocytes" (promyelocytes, METHOD IST myelocytes, metamyelocytes) [facility] Specimen Blood Performing Organization Address City/State/Zipcode Ph one Number [facility] DEPARTMENT OF [address] [place] [address] PATHOLOGY AND GENOMIC MEDICINE [address] * B natriuretic peptide (01/02/2020 8:55 PM CDT) Pathologist [facility] BNP 7 0 - 100 pg/mL [facility] Specimen Blood Performing Organization Address City/[facility] Ph one Number [facility] DEPARTMENT OF [address] [place] [address] PATHOLOGY AND GENOMIC MEDICINE [address] * Comprehensive metabolic panel (01/02/2020 8:55 PM CDT) [facility] Sodium 140 135 - 148 mEq/L [facility] Potassium 3.3 (L) 3.5 - 5.0 mEq/L [facility] Chloride 100 98 - 112 mEq/L [facility] CO2 26 24 - 31 mEq/L [facility] Anion gap 14@ANIO 7 - 15 mEq/L [facility] BUN 12 6 - 20 mg/dL [facility] Creatinine 0.73 0.50 - 0.90 mg/dL [facility] Glucose 108 (H) 65 - 99 mg/dL [facility] Calcium 9.3 8.3 - 10.2 mg/dL [facility] Protein 7.4 6.3 - 8.3 g/dL [facility] Comment: [facility] [place] 4.6-7.0 g/dL 1 week 4.4-7.6 g/dL 7 months-1year 5.1-7.3 g/dL 1-2 years 5.6-7.5 g/dL >3 years 6.0-8.0 g/dL 18-150 6.3-8.3 g/dL Albumin 4.0 3.5 - 5.0 g/dL [facility] A/G ratio 1.2 0.7 - 3.8 [facility] Alkaline 120 (H) 35 - 104 U/L [facility] phosphatase [facility] AST 36 (H) 10 - 35 U/L [facility] ALT 53 (H) 5 - 50 U/L [facility] Total bilirubin <0.2 0.0 - 1.2 mg/dL [facility] Specimen Blood Performing Organization Address City/State/[facility] Ph one Number [facility] DEPARTMENT OF [address] [place] [address] PATHOLOGY AND GENOMIC MEDICINE [address] * ECG 12 lead (01/02/2020 8:04 PM CDT) Pathologist [facility] Ventricular 83 [facility] MUSE rate Atrial rate 83 [facility] NE interval 180 [facility] QRSD interval 92 [facility] QT interval 408 [facility] MUSE QTC interval 479 [facility] P axis 1 55 [facility] QRS axis 1 -8 [facility] T wave axis 33 [facility] EKG impression Normal sinus rhythm-Normal [facility] MUSE ECG-No previous ECGs available- Specimen Narrative Performed At This result has an attachment that is n ot available. Performing Organization Address City/State/Zipcode Ph one Number [facility] MUSE [address] [place] [address] after 02/27/2019 Insurance Type Payer Benefit Subscriber ID Effective Phone Address Plan / Dates Group HMO AETNA AETNA xxxxxxxxx [id number] HMO,POS,EP resent O, MC/EC Advance Directives For more information, please contact: [phone] Patient Occupational Physician Explanation Type Date Recorded Advance Directives, 01/02/2020 11:39 PM Living Will and Medical Power of Wire [employer] Dipper
--- OUTSIDE RECORDS SUMMARY | 2020-02-28 23:34 | XMS REPORT | Continuity of Care Document ---
Author Author [facility] t Organization [facility] Address [address] [place] [address] Phone Unavailable Care Team Providers Care Mathematical Technician Name Role Phone Asked, Pcp No PCP Unavailable Venkatesh CONWAY Attphys Unavailable Rios GROSS, Suzy Attphys Unavailable Som MENDOZA, Chon Serrano Attphys Edwardo MENDOZA, Radha Attphys Ander MENDOZA, Jelena Attphys RADHA PARKER Admphys Unavailable Payers Payer Name Policy Type Policy Number Effective Date Expiration Date S sher AETNAAETNA HMO,POS,EPO, MC/[id number] xxxxxxxxx 2013 00:00:00 Krishna [...] Comments Source Sex Assigned At Ramos freitas Restorationist Alcohol intake 2020-01-02 00:00:00 2020-01-02 00:00:00 Current [...] Leigh Body temperature 2020-01-04 07:43:06 36.44 Denise Hous ton Restorationist Respiratory rate 2020-01-04 07:43:06 18 /min Tobin ton Restorationist Oxygen saturation in Arterial blood by Pulse oximetry 01-03 07:43:06 95 /min Krishna Leigh Body weight 2020-01-04 06:13:00 77.656 kg Krishna Leigh BMI 2020-01-04 06:13:00 33.44 kg/m2 Krishna Leigh Body height 2020-01-02 20:02:00 152.4 cm Krishna Leigh Procedures Procedure Date / Time Performed Performing Clinician [facility] e BASIC METABOLIC PANEL 2020-01-04 05:20:00 Mihir Erazo MAGNESIUM LEVEL 2020-01-04 05:20:00 Mihir Erazo ESTIMATED GFR 2020-01-04 05:20:00 Mihir Erazo CV CARDIAC PET STRESS TEST 2020-01-03 15:34:16 Jelena Worthington CARDIAC PET MYOCARDIAL PERFUSION IMAGING 2020-01-03 15:34:16 Jelena Dietrich TROPONIN 2020-01-03 13:30:00 Jelena Worthington Krishna Meth odist TROPONIN 2020-01-03 02:17:00 Shelly Gómez [place] [facility] BASIC METABOLIC PANEL 2020-01-03 02:17:00 Ciara Sampson Rest[facility]ist ESTIMATED GFR 2020-01-03 02:17:00 Ciara Sampson on Restorationist COVID-19 QUALITATIVE PCR 2020-01-03 00:39:00 Ciara Sampson TROPONIN 2020-01-02 23:05:00 Shelly Gómez [place] [facility] ED REFERRAL TO [facility] 2019 23:01:07 Ciara Sampson ECG ED PRELIMINARY INTERPRETATION 2020-01-02 22:39:07 Adrián Ab iola Daron Leigh CT ANGIOGRAM PE CHEST 2020-01-02 22:29:40 Ciara Sampson XR CHEST 2 VW 2020-01-02 21:44:26 Ciara Sampson on [facility]oration[facility] URINE CULTURE 2020-01-02 21:00:00 Zach Kearns URINALYSIS SCREEN AND MICROSCOPY, WITH REFLEX TO CULTURE 21:00:00 Zach Kearns HC COMPLETE BLD COUNT W/AUTO DIFF 2020-01-02 20:55:00 Kim Brown COMPREHENSIVE METABOLIC PANEL 2020-01-02 20:55:00 Alexa Brown TROPONIN 2020-01-02 20:55:00 Shelly Gómez [place] [facility] B NATRIURETIC PEPTIDE 2020-01-02 20:55:00 Ulysses Brown Restorationist ESTIMATED GFR 2020-01-02 20:55:00 Ulysses Brown Met hodist ECG 12-LEAD 2020-01-02 20:04:43 Ulysses Brown Met hodist Plan of Care Planned Activity Planned Date Details Comments Source Future Scheduled Test 2020-03-19 00:00:00 INFLUENZA VACCINE [code = INFLUENZA VACCINE] Krishna Leigh Future Scheduled Test 2019 00:00:00 BREAST CANCER SCRE ENING [code = BREAST CANCER SCREENING] [facility] [place] [place] Future Scheduled Test 2019 00:00:00 COLONOSCOPY SCREEN ING [code = COLONOSCOPY SCREENING] [facility] [place] [place] Future Scheduled Test 2019 00:00:00 SHINGLES VACCINES (#1) [code = SHINGLES VACCINES (#1)] [facility] [place] [place] Future Scheduled Test 1990 00:00:00 Screening for steve gnant neoplasm of cervix (procedure) [code = 678084388] [facility] t Encounters Start Date/Time End Date/Time Encounter Type Admission Type [facility] Care Department Encounter ID Source 2020-01-02 00:00:00 2020-01-04 00:00:00 Outpatient SONALI PARKER [facility] [id number] [place] [facility] Results Test Description Test Time Test Comments Results Result Comments Source CXR 2 VIEW - HOPD 2020-02-28 22:58:00 [place] [address] Patient Name: SARBJIT MYERS MR #: [id number] : 1970 Age/Sex: 49/F Req #: [id number] Adm Physician: Ordered by: CHERY CONWAY MD Report #: [id number] Location: [facility] Room/Bed: Procedure: [id number] HOPD/CXR 2 VIEW - HOPD Exam Date: 02/28/20 Exam Time: 2149 REPORT STATUS: Signed EXAMINATION: CXR 2 VIEW - HOPD INDICATION: Chest pain COMPARISON: None FINDINGS: TUBES and LINES: None. LUNGS: Normal lung volumes. Lungs are clear. No consolidations. PLEURA: No pleural effusion or pneumothorax. HEART AND MEDIASTINUM: The cardiomediastinal silhouette is unremarkable. BONES AND SOFT TISSUES: No acute osseous lesion. Soft tissues are unremarkable. Degenerative changes. UPPER ABDOMEN: No free air under the diaphragm. IMPRESSION: No acute thoracic radiographic abnormality. Signed by: Tristin Currie DO on 02/28/2020 10:58 PM Dictated By: TRISTIN CURRIE DO 57 Transcribed By: RODRÍGUEZ on 02/28/202257 COPY TO: CHERY CONWAY MD SCR MAMM BILATERAL BIJU CAD DIGITAL 2020-01-23 10:40:26 - SCR MAMM BILATERAL BIJU CAD DIGITALBILATERAL DIGITAL SCREENING MAMMOGRAM 3D/2D WITH CAD: 01/21/2020CLINICAL: Asymptomatic. Digital breast tomosynthesis was performed in addition to routine CC and MLO views. Current mammographic images were evaluated by either a [employer] M-Vu or a Specialized Tech ImagePetsDx Veterinary Imaginger CAD (computer aided detection system). Comparison is made to exams dated 09/28/2016 mammogram and 09/29/2014 mammogram - [facility]-. The tissue of both breasts [...] at this time.Nigel Munoz M.D. 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[employer]: Ana Guerrero , [facility]-letter sent: Additional Imaging Mammogram BI-RADS: 0 Incomplete: Additional Imaging Evaluation Needed Basic metabolic panel 2020-01-04 07:23:21 Test Item Sodium (test code = 2951-2) 139 135- 148 mEq/L Potassium (test code = 2823-3) 4.1 3.5- 5.0 mEq/L Chloride (test code = 2075-0) 102 98- 112 mEq/L CO2 (test code = 2027-9) 22 24- 31 mEq/L L Anion gap (test code = 29495-8) 15@ANIO 7- 15 mEq/L BUN (test code = 3094-0) 17 mg/dL 6-20 Creatinine (test code = 2160-0) 0.72 mg/dL 0.5-0.9 Glucose (test code = 2345-7) 108 mg/dL 65-99 H Calcium (test code = 51696-5) 9.7 mg/dL 8.3-10.2 Lab Interpretation (test code = 79124-1) Abnormal Krishna MethodistMagnesium vsgta0532-73-64 07:23:21* Test Item Value Reference Range Interpretation Comments Magnesium (test code = 28763-3) 2.0 mg/dL 1.6-2.6 Keller MethodistEstimated [id number] 07:23:21* Test Item Value Reference Range Interpretation Comments Estimated GFR (test code = 5488) >=90 mL/min/1.73 m2 Catergory Units InterpretationG1 >=90 Normal or highG2 60-89 Mildly ongzaezidI7j 45-59 Mildly to moderately rodrlzdygA8p 30-44 Moderately to severely decreasedG4 15-29 Severely decreasedG5 <15 Kidney failureThe eGFR was calculated using the Chronic Kidney Disease Epidemiology Collaboration (CKD-EPI) equation. Interpretation is based on recommendations of the National Kidney Foundation-Kidney Disease Outcomes Quality Initiative (NKF-KDOQI) published in 2014. Krishna LeighCOVID-19 qualitative [id number] 17:11:11* Test Item Value Reference Range Interpretation Comments Interpretation (test code = 1178857) Negative results do not preclude 2019-nCoV infection and should not be used as the sole basis for treatment or other patient management decisions. Negative results must be combined with clinical observations, patient history, and epidemiological information. COVID-19 qualitative PCR result (test code = 07878-3) Not-Detect ed Not-Detected COVID-19 qualitative PCR (test code = 7070) See link below for P DF Lab Report Krishna LeighCV Cardiac PET Myocardial Perfusion Spxgyow1045-74-60 16:45:33 Interface, Radiology Results In - 01/03/2020 4:45 PM CDTSee PDF file for full anand LeighCv stress [id number] 16:36:50* Test Item Value Reference Range Interpretation Comments Resting HR (test code = 1760853971) 60 Resting BP (test code = 4883083809) 129 Peak MET Achieved (test code = 1716675514) 1 Protocol Name (test code = 9622378698) Lexiscan Time in Exercise Phase (test code = 0574742874) 00:01:00 Max Systolic BP (test code = 6122742435) 132 Max Diastolic BP (test code = 0033117640) 63 Max Heart Rate (test code = 4658223737) 89 Max Predicted Heart Rate (test code = 7761456362) 170 Target HR Formula (test code = 6843775398) (220 - Age)*100% Test Indication (test code = 8219994946) chest pain Arrhy During Ex (test code = 3634032085) ECG Interp Before EX (test code = 5775340392) ECG Interp During Ex (test code = 9733129703) Ex Summary Comment (test code = 5837109967) Overall HR Response to Exercise (test code = 4338450923) Overall BP Response To Exercise (test code = 1129381677) Reason for Termination (test code = 5582229052) Protocol Complete Stress Test Impression (test code = 4790148280) -Wavef orm interpreted in report associated with image study. No interpretation is provided as part of this Stress ECG report.- Krishna MathiasUdmeblmlnWwsmuyjp5749-17-69 14:08:35* Test Item Value Reference Range Interpretation Comments Troponin (test code = 97000-0) 0.020 ng/mL 0-0.04 In patients suspected of [...] OR decreased by less than 0.020 ng/mL Baudette MethodistECG 12 aami1035-62-95 10:04:17* Test Item Value Reference Range Interpretation Comments Ventricular rate (test code = 253) 83 Atrial rate (test code = 255) 83 ME interval (test code = 266) 180 QRSD [...] sinus rhythm-N ormal ECG-No previous ECGs available- Baudette MethodistCT Angiogram Pe Wpytl8211-44-10 22:44:56Hm Interface, Radiology Results Incoming - 01/02/2020 10:48 PM CDTEXAMINATION: CT ANGIOGRAM [...] embolism.2. No acute abnormality identified in the chest.[id number] [facility] MethodistEC ED Preliminary Interpretation - Not an Nbpaa8037-18-32 22:39:07Zach Kearns MD 01/08/2020 2:52 [facility] [place] Preliminary Interpretation - Not an OrderPerformed by: Ciara Sampson, PAAuthorized by: Zach Kearns MD ECG reviewed by ED Physician in the absence of a tax collection coordinator: yes Previous ECG: Previous ECG: UnavailableInterpretation: Interpretation: normal Rate: ECG rate: 83 bpm ECG rate assessment: normal Rhythm: Rhythm: sinus rhythm Ectopy: Ectopy: none QRS: QRS axis: Left QRS intervals: NormalConduction: Conduction: normal ST segments: ST segments: Non-specificT waves: T waves: normal Baudette MethodistUrinalysis screen and microscopy, with reflex to hsmokvb8804-35-80 22:29:50* Test Item Value Reference Range Interpretation Comments Specimen site (test code = 8608563) Clean catch Color, UA (test code = 5778-6) Colorless Appearance, UA (test code = 5767-9) Clear Specific gravity, UA (test code = 5811-5) 1.003 1.001-1.035 pH, UA (test code = 5803-2) 7.0 5.0-8.5 Protein, UA (test code = 28499-7) Negative Negative Glucose, UA (test code = 58543-6) Negative Negative Ketones, UA (test code = 2514-8) Negative Negative Bilirubin, UA (test code = 5770-3) Negative Negative Blood, UA (test code = 5794-3) Negative Negative Nitrite, UA (test code = 5802-4) Negative Negative Urobilinogen, UA (test code = 27990-9) <2.0 <2.0 Leukocyte esterase, UA (test code = 5799-2) Negative Negative WBC, UA (test code = 5821-4) <1 0- 4 /HPF RBC, UA (test code = 83578-5) <1 0- 5 /HPF Bacteria, UA (test code = 28755-4) Few None seen Yeast, UA (test code = 36191-9) None seen Yeast with pseudohyphae, UA (test code = 82063-4) None seen [facility], TxB natriuretic smggori5503-33-71 22:09:03* Test Item Value Reference Range Interpretation Comments BNP (test code = 86274-4) 7 pg/mL 0-100 Baudette MethodistXR Chest 2 [id number] 21:49:39Hm Interface, Radiology Results - 01/02/2020 9:52 PM CDTEXAMINATION: XR CHEST 2 VWCLINICAL HISTORY: 48 years Female SOBCOMPARISON: None.IMPRESSION:Normal chest.Findings:The cardiomediastinal silhouette, lungs, and regional skeletal structures are within normal limits.[facility]-AU19YDFNNleiymv MethodistUrine qowcgjw5554-22-38 21:41:45* Test Item Value Reference Range Interpretation Comments Urine culture (test code = 0660991) SEE COMMENT Bacteriuria screen negative. [facility] Springs[facility]Comprehensive metabolic obtkc2096-65-93 21:38:03* Test Item Value Reference Range Interpretation Comments Sodium (test code = 2951-2) 140 135- 148 mEq/L Potassium (test code = 2823-3) 3.3 3.5- 5.0 mEq/L L Chloride (test code = 2075-0) 100 98- 112 mEq/L CO2 (test code = 2027-9) 26 24- 31 mEq/L Anion gap (test code = 81553-4) 14@ANIO 7- 15 mEq/L BUN (test code = 3094-0) 12 mg/dL 6-20 Creatinine (test code = 2160-0) 0.73 mg/dL 0.5-0.9 Glucose (test code = 2345-7) 108 mg/dL 65-99 H Calcium (test code = 94300-2) 9.3 mg/dL 8.3-10.2 Protein (test code = 2885-2) 7.4 g/dL 6.3-8.3 - 4.6- 7.0 g/dL1 week 4.4-7.6 g/dL7 months-1year 5.1-7.3 g/dL1-2 years 5.6-7.5 g/dL>3 years 6.0-8.0 g/xS30-492 6.3-8.3 g/dL Albumin (test code = 1751-7) 4.0 g/dL 3.5-5 A/G ratio (test code = 1759-0) 1.2 0.7-3.8 Alkaline phosphatase (test code = 6768-6) 120 U/L 35-104 H AST (test code = 1920-8) 36 U/L 10-35 H ALT (test code = 1742-6) 53 U/L 5-50 H Total bilirubin (test code = 1975-2) <0.2 0-1.2 Lab Interpretation (test code = 84440-6) Abnormal [facility] with platelet and ksnffksbsbfj8111-81-90 21:14:08* Test Item Value Reference Range Interpretation Comments WBC (test code = 91311-6) 7.71 4.50- 11.00 k/uL RBC (test code = 08327-9) 4.40 m/uL 4.2-5.5 HGB (test code = 718-7) 12.5 g/dL 12-16 HCT (test code = 4544-3) 36.4 % 37-47 L MCV (test code = 787-2) 82.7 fL 82-100 MCH (test code = 785-6) 28.4 pg 27-34 MCHC (test code = 786-4) 34.3 g/dL 31-37 RDW - SD (test code = 23760-4) 40.3 fL 37-55 MPV (test code = 76337-1) 9.9 fL 8.8-13.2 Platelet count (test code = 63347-4) 262 150- 400 k/uL Nucleated RBC (test code = 05103-0) 0.00 /100 WBC Neutrophils (test code = 81493-2) 50.8 % 39-69 Lymphocytes (test code = 65802-0) 38.0 % 25-45 Monocytes (test code = 14551-9) 8.7 % 0-10 Eosinophils (test code = 53502-8) 1.3 % 0-5 Basophils (test code = 37442-7) 0.4 % 0-1 Immature granulocytes (test code = 95412-8) 0.8 % 0-1 "Immature granulocytes" (promyelocytes, myelocytes, metamyelocytes) Lab Interpretation (test code = 08792-9) Abnormal Krishna Leigh
[2020-02-28 23:49] LABS: CREATINE KINASE MB 3.4 ng/mL (0-5.0)
[2020-02-29] MEDS: KCL 20MEQ/.9 SOD CHL 1,000 ML IV SCH
--- NOTE | 2020-02-29 00:11 | NUR ---
CALLED [facility] FOR TRANSPORT TO [facility] RM 115. 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 ETA SHOULD BE WITHIN THE HOUR.
--- NOTE | 2020-02-29 00:37 | NUR ---
REPORT TO LEXII ALVARADO FOR [facility] RM 115
[2020-02-29] MEDS ORDERED: LABETALOL HCL 5 MG/ML 20ML VIAL IV PRN (02:45)
[2020-02-29 03:17] VITALS: BP 142/86
[2020-02-29 03:18] VITALS: BP 142/86
[2020-02-29 04:15] VITALS: BP 142/86
--- NOTE | 2020-02-29 04:29 | NUR ---
patient is a new admit that arrived via strecther. patient has been helped into the hospital bed. bed is in lowest position and call light is within reach. will continue to monitor patient.
[2020-02-29 05:38] LABS: ANION GAP 15.9 mmol/L (8-16); BLOOD UREA NITROGEN 13 mg/dL (7-26); BUN/CREATININE RATIO 18 (6-25); CALCIUM 8.6 mg/dL (8.4-10.2); CARBON DIOXIDE 23 mmol/L (22-29); CHLORIDE 106 mmol/L (98-107); CHOL/HDL RATIO 4.7 (3.0-3.6); CHOLESTEROL 189 MD/DL (0-199); CREATININE, SERUM 0.71 mg/dL (0.57-1.11); EST GLOMERULAR FILTRATION RATE > 60 ML/MIN (60-); GLUCOSE 128 mg/dL (74-118); HDL CHOLESTEROL 40 MG/DL (40-60); LDL CHOLESTEROL 112 MG/DL (60-130); POTASSIUM 3.9 mmol/L (3.5-5.1); SODIUM 141 mmol/L (136-145); TRIGLYCERIDES 184 MG/DL (0-149)
[2020-02-29 05:42] VITALS: BP 132/68
[2020-02-29 07:19] LABS: CREATINE KINASE MB 2.8 ng/mL (0-5.0)
[2020-02-29 08:00] VITALS: BP 125/78
[2020-02-29 08:34] VITALS: BP 125/78
[2020-02-29] MEDS ORDERED: ASPIRIN 81 MG ENTERIC COATED PO SCH (09:00)
--- NOTE | 2020-02-29 10:27 | NUR ---
Patient received discharge order from Dr. Reese. Patient and daughter were educated by Dr. Reese and by this teletypewriter operator. Daughter, Iveth, and patient were both given discharge instructions,education, and new prescriptions. Patient and daughter verbalized understanding. Patient IV removed at 1015 and covered with a C/D/I dressing. Patient wheeled to daughter's car at 1027 and had no other issues or complaints.
--- NOTE | 2020-02-29 13:50 | Discharge Summary ---
PRIMARY CARE PHYSICIAN: . CHIEF COMPLAINT: Chest pain associated with generalized weakness. HISTORY OF PRESENT ILLNESS: The patient is a 49-year-old female with history of high blood pressure, hypertension, presented to the hospital with chest pressure, numbness all over her body, sweating and to light palpation with normal left heart rate. EKG that was obtained in the emergency room. The patient's heart rate was 77 beats per minute. The patient recently was at [facility] back in December 2019. At that time, the patient was admitted and underwent a cardiac stress test and also cardiac PET scan as well. The patient's workup was basically negative and that the patient was scheduled to see her cognos architect on March 10. The patient now came in with a brief episode of symptoms very similar to she had before. Symptoms subsequently went away. Her cardiac enzyme was negative. BNP was normal. Her potassium, however, 3. The patient did not have any GI symptoms, although she did have some reflux at times per the patient's daughter, Iveth. The workup was otherwise unremarkable. Chest x-ray is negative. Currently, the patient is chest pain free. The patient will go home today. I discussed at length with the patient's daughter and have a management plan for the patient's symptoms until she see her cognos architect on March 10. I would like to go ahead and discharge the patient home with her current home medication. I would like to put the patient on Xanax 0.25 mg p.o. q.6 as needed for her symptoms of anxiety, chest pain, and generalized weakness. With respect to her blood pressure and low potassium, I would like to place the patient on Aldactone 25 mg daily. It is a low dose medication. For her reflux, some omeprazole 20 mg once a day. The patient is otherwise stable. She is asymptomatic now and she want to go home and I agreed. The patient will need to follow up with her family physician next week. We do the electrolytes and possible referral to a hole filler for evaluation of the low potassium, associated with high blood pressure. The patient is otherwise stable, discharged home today and follow up as instructed and planned. MD CIELO Ramon/MODL :48:44 /[id number]
== END 2020-02-29 10:27 | disposition home or self-care (01) ==
LOC: EDBD 19:49 → FSED 20:20 → ERHOLD 23:23 → MED/SURG 02-29 02:52
PROVIDERS: ADMIT Internal Medicine; ATTEND Internal Medicine
DX: R07.89 Other chest pain (principal); I10 Essential (primary) hypertension; F41.9 Anxiety disorder, unspecified; Z11.59 Encounter for screening for other viral diseases; E87.6 Hypokalemia
CPT/HCPCS: 36415 ×2; 71046; 80048; 80053; 80061; 81003; 82550 ×2; 82553 ×2; 83735; 83880; 84484 ×2; 85025; 85379; 93005; 96365; 96374; 96376; 99284; G0378 ×2; J2270; J2405 ×2; J3480; J7030; U0002